=== PATIENT | female | born 1965 | race Two or more races ===

== ENCOUNTER 2016-08-20 09:59 | Day surgery (SDC) | payer OTHER ==
[~2016-08-20] VITALS: Ht 154.9 cm; Wt 71.3 kg
[2016-08-20 11:01] VITALS: Ht 154.9 cm; Wt 71.3 kg
[2016-08-20] MEDS ORDERED: GLIPIZIDE (11:07)
[2016-08-20] MEDS ORDERED: METFORMIN (11:07)
[2016-08-20] MEDS ORDERED: MIDAZOLAM 1 MG/ML 2 ML INJ ONE ×2 (12:12→15:00)
[2016-08-20] MEDS ORDERED: FENTAnyl 50 MCG/ML VIAL ONE ×2 (12:12→15:00)
[2016-08-20 12:44] VITALS: BP 141/82; PULSE 83; RESP 18
--- NOTE | 2016-08-20 15:50 | GILP ---
DATE OF PROCEDURE: 08/20/2016 NAME OF PROCEDURES: Colonoscopy and biopsy. SURGEON: Marty Beltran MD PREOPERATIVE DIAGNOSIS: Screening colonoscopy. POSTOPERATIVE DIAGNOSES: 1. Colonoscopy all the way to the cecum. 2. Poor prep, making the exam somewhat suboptimal. 3. Three small colon polyps, one from the right colon, one from the transverse colon and one from t he sigmoid colon were removed using the biopsy forceps. 4. Internal hemorrhoids. INDICATION FOR THE PROCEDURE: Ms. Rukhsana Spangler is a 51-year-old female patient who noticed a choudhary ge in the bowel habit. She needed a screening colonoscopy. The procedure and possible complications are well explained to the patient, she understood and conse nted to the procedure. DESCRIPTION OF PROCEDURE: Under the influence of fentanyl and Versed, the colonoscope was carefully introduced in the rectum and under direct vision, it was advanced all the way to the cecum. FINDINGS: The patient had 3 small polyps, one in the right colon, one in the transverse colon, and one in the sigmoid colon and altogether was removed using the biopsy forceps. The patient had inter nal hemorrhoids. The patient had poor prep, making the exam somewhat suboptimal. She tolerated the procedure very well and there was no complication from the procedure. At the end of the procedures, she was awake with stable vital signs and she was discharged home to the care of her family. IMPRESSION: 1. Colonoscopy all the way to the cecum. 2. Three small colon polyps from the right colon, transverse colon and sigmoid colon were removed u sing the biopsy forceps. 3. Internal hemorrhoids. 4. Poor prep, making the exam somewhat suboptimal. PLAN: Await histopathology report. 1 Linzess 145 mcg p.o. daily a.m. before breakfast for constipation. 2. Because of the poor prep and suboptimal nature of the exam, and because of 3 polyps, she had __ __ examination. She will need followup colonoscopy in 3 years. Dictated By: MARTY LARA/RHINA Conf#: [id number] DID#: [id number] CC: MARTY BELTRAN MD;*EndCC*
== END 2016-08-20 16:10 | disposition home or self-care (01) ==
LOC: GIL 09:59
PROVIDERS: ATTEND Internal Medicine Gastroenterology
DX: Z12.11 Encounter for screening for malignant neoplasm of colon (principal); D12.5 Benign neoplasm of sigmoid colon; K63.5 Polyp of colon; K64.8 Other hemorrhoids
CPT/HCPCS: 45380; 88305; J2250; J3010; Z7610